=== PATIENT | female | born 1970 | race Caucasian/White ===

== ENCOUNTER 2017-11-09 18:38 | Emergency (ER) | payer BC ==
[2017-11-09 18:43] VITALS: BP 128/62; BMI 28.8
[2017-11-09] MEDS ORDERED: PHENERGAN INJ 25 MG IM ONE (21:14)
[2017-11-09] MEDS ORDERED: TORADOL 60 MG VIAL IM ONE (21:14)
--- NOTE | 2017-11-09 21:16 | DR.GENAD ---
HPI - PCP Primary Care Physician: ESE - Complaint/Symptoms Chief Complaint Doctors Comments: Patient is complaining of left lower quadrant pain for the past seven hours getting progressively worst. States the pain is sharp pain worst when she move or straighten her left leg. states she went shopping and when she got home she could not put up her groceries due to severe left lower abdominal pain. States the pain is 8 of 10. She denies hematuria, fever, chills, melana or any recent trauma. States her perods are regular and she has had a tubaligation. States she is a patient of Dr. Vang. Chief Complaint:: "IM HURTING IN MY LOWER LEFT ABD." Self Treatment fo Chief Complaint: MOTRIN - Nurses notes reviewed Nurses Notes Review: Yes - Source History Provided: Patient - Mode of Arrival Mode of Arrival: Ambulatory - Timing Onset of Chief Complaint: 11/09/17 Came on: Suddenly - Duration Duration: Constant How lon Duration: Hours - Location Location: left lower abdominal pain - Severity Severity: Severe - Modifying Factors Worsens:: movement Improves:: elevating left leg PMH - PMH Past Medical History: No Past Surgical History: No - Family History History of Family Medical Conditions: No - Social History Does patient currently use any type of tobacco product: No Have you used tobacco products in the last 12 months: No Type of Tobacco Use: None Does any household member use tobacco: No Alcohol Use: None Do you use any recreational Drugs:: No Lives With: Family Lives Where: Home - infectious screening In the last 2 months have you had wt loss of >10#?: NO Have you had fever, night sweats or hemotysis?: No Have you traveled outside the country in the last 6 months?: No Isolation: Standard ROS - Review of Systems Constitutional: No Symptoms Reported. negative: See HPI, Chills, Diaphoresis, Fever, Malaise, Weakness, Irritable, Fatigue, Loss of Appetite, Other Eyes: No Symptoms Reported ENTM: No Symptoms Reported. negative: See HPI, Ear Pain, Ear Discharge, Pulling on Ears, Hearing Loss, Nose Pain, Nose Discharge, Epistaxis, Nose Congestion, Mouth Pain, Mouth Swelling, Loose Teeth, Drooling, Throat Pain, Throat Swelling, Ear Foreign Body Respiratoy: No Symptoms Reported Cardiovascular: No Symptoms Reported. negative: See HPI, Chest Pain, Edema, Palpitations, Syncope, Cyanosis, Skin Mottling, Other Gastrointestinal/Abdominal: No Symptoms Reported, Abdominal Pain (left lower quadrant pain) Genitourinary: No Symptoms Reported. negative: See HPI, Discharge, Dysuria, Frequency, Hematuria, Pain, Bleeding, Other Neurological: No Symptoms Reported, Problems Walking Musculoskeletal: No Symptoms Reported Integumentary: No Symptoms Reported. negative: See HPI, Change in Color, Change in Hair/Nails, Dryness, Lesions, Lumps, Rash, Itching, Wound, Bruises, Juandice, Other Hematologic/Lymphatic: No Symptoms Reported Endocrine: No Symptoms Reported Psychiatric: No Symptoms Reported PE - Vital Signs Vitals: Temperature 99.1 F Pulse Rate 88 Respiratory Rate 18 Blood Pressure 128/62 O2 Sat by Pulse Oximetry 100 - General Limitations: No Limitations General Appearance: Alert, In Distress (moderate to severe) - Head Head Exam: Normal Inspection, Atraumatic, Normocephalic - Eyes Eye exam: Normal Appearance, PERRL, EOMI. negative: Scleral Icterus, Conjunctival Injection, Nystagmus, Miosis, Mydrasis, Periorbital Swelling, Periorbital Tenderness, Other - ENT ENT Exam: Normal Exam, Normal Oropharynx, Normal External Ear Exam, Mucous Membranes Moist, TM's Normal Bilaterally External Ear Exam: Normal External Inspection TM/Canal Exam: Bilateral Normal Nose Exam: Normal Nose Exam Mouth Exam: Normal Inspection Throat Exam: Normal Inspection - Neck Neck Exam: Normal Inspection, Full ROM, Trachea Midline - Chest Chest Inspection: Normal Inspection, Symmetric Chest Wall Rise - Respiratory Respiratory Exam: Normal Lung Sounds Bilat Respiratory Exam: Bilateral Clear to Auscultation - Cardiovascular Cardiovascular Exam: Regular Rate, Normal Rhythm, Normal Heart Sounds - Abdominal Exam Abdominal Exam: Normal Inspection, Normal Bowel Sounds, Soft Abdominal Tenderness: LLQ, Moderate - Extremities Extremities Exam: Normal Inspection, Full ROM, Normal Capillary Refill. negative: Tenderness, Edema, Joint Swelling, Calf Tenderness, Other - Back Back Exam: Normal Inspection, Full ROM, Tenderness - Neurologic Neurological Exam: Alert, Oriented X3, CN II-XII Intact, Normal Gait, Reflexes Normal - Psychiatric Psychiatric Exam: Normal Affect, Normal Mood - Skin Skin Exam: Warm, Dry, Intact, Normal Color ROR - Labs Reviewed Laboratory Results Reviewed?: Yes (All labs and x-ray results reviewed and discussed with patient) Result Diagrams: 11/09/17 21:26 04/14/18 21: Laboratory: WBC 10.3 X10^3/uL (3.6-10.0) H 11/09/17 21: RBC 4.35 X10^6/uL (3.5-5.4) 11/09/17 21: Hgb 12.1 g/dL (12.0-16.0) 11/09/17 21: Hct 34.9 % (36.0-47.0) L 11/09/17 21: MCV 80.2 fL (80.0-100.0) 11/09/17 21: MCH 27.8 pg (27.0-34.0) 11/09/17: MCHC 34.7 g/dL (33.0-35.0) 11/09/17: RDW 13.5 % (11.6-16.5) 11/09/17: Plt Count 220 X10^3/uL (150.0-450.0) 11/09/17: MPV 8.4 fL (7.4-11.0) 11/09/17 21: Neut % (Auto) 86.3 % (42.0-75.0) H 11/09/17 21: Lymph % (Auto) 8.4 % (21.0-51.0) L 11/09/17 21: [place] % (Auto) 3.4 % (0.0-13.0) 11/09/17: Eos % (Auto) 1.4 % (0.9-2.9) 11/09/17: Baso % (Auto) 0.5 % (0.2-1.0) 11/09/17: Neut # (Auto) 8.9 x10^3/uL (2.2-4.8) H 11/09/17 21: Lymph # (Auto) 0.9 X10^3/uL (1.3-2.9) L 11/09/17 21: [place] # (Auto) 0.4 x10^3/uL (0.3-0.8) 11/09/17 21: Eos # (Auto) 0.1 x10^3/uL (0.0-0.2) 11/09/17 21:26 Baso # (Auto) 0.1 X10^3/uL (0.0-0.1) 11/09/17 21:26 Absolute Nucleated RBC 0.0 /100WBC 11/09/17 21:26 Sodium 139 mmol/L (136-145) 11/09/17 21:26 Corrected Sodium 140 mmol/L (136-145) 11/09/17 21:26 Potassium 3.4 mmol/L (3.5-5.1) L 11/09/17 21:26 Chloride 103 mmol/L (98-107) 11/09/17 21:26 Carbon Dioxide 25.2 mmol/L (21-32) 11/09/17 21:26 BUN 16 mg/dL (7-18) 11/09/17 21:26 Creatinine 0.71 mg/dL (0.55-1.02) 11/09/17 21:26 Est GFR (MDRD) Af Amer > 60 (>60) 11/09/17 21:26 Est GFR (MDRD) Non-Af > 60 (>60) 11/09/17 21:26 Glucose 158 mg/dL (65-99) H 11/09/17 21:26 Calcium 8.5 mg/dL (8.5-10.1) 11/09/17 21:26 Corrected Calcium TNP 11/09/17 21:26 Total Bilirubin 0.30 mg/dL (0.2-1.0) 11/09/17 21:26 AST 14 Units/L (15-37) L 11/09/17 21:26 ALT 22 Units/L (12-78) 11/09/17 21:26 Alkaline Phosphatase 67 Units/L (46-116) 11/09/17 21:26 Total Protein 7.4 g/dL (6.4-8.2) 11/09/17 21:26 Albumin 3.7 g/dL (3.4-5.0) 11/09/17 21:26 Globulin 3.7 g/dL (2.5-4.5) 11/09/17 21:26 Albumin/Globulin Ratio 1.0 Ratio (1.1-2.1) L 11/09/17 21:26 Amylase 66 Units/L (25-115) 11/09/17 21: Lipase 173 Units/L (73-393) 11/09/17 21: HCG, Qual Negative <10 mIU/mL 11/09/17 21: Specimen Type Clean catch urine 11/09/17 21:03 Urine Color Yellow (YELLOW) 11/09/17 21: Urine Appearance Clear (CLEAR) 11/09/17 21: Urine pH 6.5 (5.0 - 8.0) 11/09/17 21: Ur Specific [place] 1.015 (1.000-1.030) 11/09/17 21:03 Urine Protein 1+ (NEGATIVE) 11/09/17 21: Urine Glucose (UA) Negative (NEGATIVE) 11/09/17 21: Urine Ketones Negative (NEGATIVE) 11/09/17 21: Urine Occult Blood 2+ (NEGATIVE) 11/09/17 21: Urine Nitrite Negative (NEGATIVE) 11/09/17 21: Urine Bilirubin Negative (NEGATIVE) 11/09/17 21: Urine Urobilinogen Normal (NORMAL) 11/09/17 21:03 Ur Leukocyte Esterase 2+ (NEGATIVE) 11/09/17 21: Urine RBC 5-10 /HPF (NONE SEEN) 11/09/17 21:03 Urine WBC 3-5 /HPF (NONE SEEN) 11/09/17 21:03 Ur Squamous Epith Cells Few /HPF (NEGATIVE) 11/09/17 21:03 Ur Renal Epithelial Cell Rare /HPF (NEGATIVE) 11/09/17 21: Amorphous Sediment 1+ /HPF (NEGATIVE) 11/09/17 21:03 Urine Bacteria Trace /HPF (NEGATIVE) 11/09/17 21: Urine Mucus Moderate /HPF (NEGATIVE) 11/09/17 21:03 Ur Culture Indicated? No/not indicated 11/09/17 21:03 - XRAY XRAY Interpreted by: Radiologist (CT abdomen and pelvis: Negative cT of the abdomen and pelvis.) - Diagnosis Discharge Problem: Abdominal pain, LLQ, Hyperglycemia, Hypokalemia Hematuria Qualifiers: Hematuria type: other microscopic Qualified Code(s): R31.29 - Other microscopic hematuria; R31.2 - Other microscopic hematuria - Discharge Plan Condition: Stable Prescriptions: Ciprofloxacin HCl [CIPRO 500 MG TAB *] 500 mg PO Q12H #20 tab - Follow ups/Referrals Follow ups/Referrals: KIN BARTON [Primary Care Provider] - 3 days - Instructions Instructions: Preventing Type 2 Diabetes Mellitus, Hypokalemia, Hematuria, Adult
[2017-11-09 21:19] LABS: BILIRUBIN,URINE NEGATIVE (NEGATIVE); BLOOD/HEMOGLOBIN,URINE 2+ (NEGATIVE); GLUCOSE, URINE NEGATIVE (NEGATIVE); KETONES,URINE NEGATIVE (NEGATIVE); LEUKOCYTE ESTERASE ,URINE 2+ (NEGATIVE); NITRITES,URINE NEGATIVE (NEGATIVE); PH,URINE 6.5 (5.0 - 8.0); PROTEIN,URINE 1+ (NEGATIVE); UROBILINOGEN,URINE NORMAL (NORMAL)
[2017-11-09 21:21] LABS: APPEARANCE,URINE CLEAR (CLEAR); COLOR,URINE YELLOW (YELLOW)
[2017-11-09 21:26] LABS: AMORPHOUS SEDIMENT,UR 1+ /HPF (NEGATIVE); BACTERIA,URINE TRACE /HPF (NEGATIVE); SQUAMOUS EPITHELIAL CELL,UR FEW /HPF (NEGATIVE)
[2017-11-09 21:27] LABS: MUCUS,URINE MODERATE /HPF (NEGATIVE); RENAL EPITHELIAL CELLS,URINE RARE /HPF (NEGATIVE)
[2017-11-09 21:36] LABS: BASOPHILS # (AUTO) 0.1 X10^3/uL (0.0-0.1); BASOPHILS % (AUTO) 0.5 % (0.2-1.0); EOSINOPHILS # (AUTO) 0.1 x10^3/uL (0.0-0.2); EOSINOPHILS % (AUTO) 1.4 % (0.9-2.9); HEMATOCRIT 34.9 % (36.0-47.0); HEMOGLOBIN 12.1 g/dL (12.0-16.0); LYMPHOCYTES # (AUTO) 0.9 X10^3/uL (1.3-2.9); LYMPHOCYTES % (AUTO) 8.4 % (21.0-51.0); MEAN CORPUSCULAR HEMOGLOBIN 27.8 pg (27.0-34.0); MEAN CORPUSCULAR HGB CONC 34.7 g/dL (33.0-35.0); MEAN CORPUSCULAR VOLUME 80.2 fL (80.0-100.0); MEAN PLATELET VOLUME 8.4 fL (7.4-11.0); MONOCYTES # (AUTO) 0.4 x10^3/uL (0.3-0.8); MONOCYTES % (AUTO) 3.4 % (0.0-13.0); NEUTROPHILS # (AUTO) 8.9 x10^3/uL (2.2-4.8); NEUTROPHILS % (AUTO) 86.3 % (42.0-75.0); PLATELET COUNT 220 X10^3/uL (150.0-450.0); RED BLOOD COUNT 4.35 X10^6/uL (3.5-5.4); RED CELL DISTRIBUTION WIDTH 13.5 % (11.6-16.5); WHITE BLOOD COUNT 10.3 X10^3/uL (3.6-10.0)
[2017-11-09 21:45] LABS: ALANINE AMINOTRANSFERASE 22 Units/L (12-78); ALBUMIN 3.7 g/dL (3.4-5.0); ALKALINE PHOSPHATASE 67 Units/L (46-116); AMYLASE 66 Units/L (25-115); ASPARTATE AMINO TRANSFERASE 14 Units/L (15-37); BLOOD UREA NITROGEN 16 mg/dL (7-18); CALCIUM 8.5 mg/dL (8.5-10.1); CARBON DIOXIDE 25.2 mmol/L (21-32); CHLORIDE 103 mmol/L (98-107); COR NA(FOR HYPERGLY) 140 mmol/L (136-145); CREATININE 0.71 mg/dL (0.55-1.02); LIPASE 173 Units/L (73-393); SODIUM 139 mmol/L (136-145); TOTAL PROTEIN 7.4 g/dL (6.4-8.2); eGFR BLACK RACES > 60 (>60); eGFR NON BLACK RACES > 60 (>60)
[2017-11-09 21:54] LABS: SERUM PREGNANCY TEST, QUAL NEGATIVE <10 mIU/mL
[2017-11-09] MEDS ORDERED: TORADOL 60 MG VIAL ONE (21:59)
[2017-11-09] MEDS ORDERED: PHENERGAN INJ 25 MG ONE (22:00)
--- NOTE | 2017-11-09 22:12 | CT ---
HISTORY: Left lower quadrant pain Study: CT abdomen and pelvis without contrast Comparison: None Technique: Multiple axial images of the abdomen and pelvis were obtained from the lung bases to the pubic symphy sis without the administration of IV contrast. Findings: The visualized portions of the lung bases are unremarkable. The liver, spleen, pancreas, kidneys, an d adrenal glands are unremarkable in their noncontrast CT appearance. The gallbladder is unremarkable in its CT appearance. No significant mesenteric lymphadenopathy or stranding can be observed. No f ree fluid or free air is seen within the abdomen. No bowel wall thickening or bowel dilatation is pr esent. The colon is unremarkable. Specifically, there is no diverticulosis noted within the sigmoid colon. The appendix is not seen but there are no secondary signs to suggest appendicitis. The urin sriram bladder is grossly unremarkable. The bony structures are grossly intact. IMPRESSION: 1. Negative CT of the abdomen and pelvis. Reported By:
== END 2017-11-09 23:14 | disposition home or self-care (01) ==
LOC: ER 18:49
DX: R10.32 Left lower quadrant pain (principal); R73.9 Hyperglycemia, unspecified; E87.0 Hyperosmolality and hypernatremia; R31.29 Other microscopic hematuria
CPT/HCPCS: 36415; 74176; 80053; 81001; 82150; 83690; 84703; 85025; 96372; 99282; 99283; J1885; J2550